=== PATIENT | male | born 1955 | race Caucasian/White ===

== ENCOUNTER → 2016-12-25 | Outpatient (CLI) | payer BC | LOC: BHSO 13:09 | DX: F41.1 Generalized anxiety disorder (principal) ==

== ENCOUNTER → 2017-08-03 | Outpatient (CLI) | payer BC | LOC: BHSO 10:28 | DX: F31.73 Bipolar disorder, in partial remission, most recent episode manic (principal) ==

== ENCOUNTER → 2017-12-10 | Outpatient (CLI) | payer BC | LOC: BHSO 10:33 | DX: F41.1 Generalized anxiety disorder (principal) | CPT/HCPCS: G0463 ==